=== PATIENT | female | born 1990 | race Two or more races ===

== ENCOUNTER 2019-07-15 20:03 | Inpatient (IN) | payer SELFPAY ==
[~2019-07-15] VITALS: Ht 162.6 cm; Wt 90.3 kg
[~2019-07-15 20:03] MED LIST: TRAM50TA PO
[2019-07-15] MEDS ORDERED: TERBUTALINE 1 MG/ML VIAL. SQ PRN (20:30)
[2019-07-15] MEDS ORDERED: MAG HYDROX/ALUMINUM HYD/SIMETH 30 ML ORAL.SUSP PO PRN (20:30)
[2019-07-15] MEDS ORDERED: LIDOCAINE 1% PF 30 ML VIAL. INJ PRN (20:30)
[2019-07-15] MEDS ORDERED: 0.9 % SODIUM CHLORIDE 10 ML DISP.SYRIN. IV PRN (20:30)
[2019-07-15] MEDS ORDERED: OXYTOCIN 30 UNIT/500 ML PREMIX 500 ML IV PRN (20:30)
[2019-07-15] MEDS ORDERED: ACETAMINOPHEN 325 MG TABLET. PO PRN (20:30)
[2019-07-15] MEDS ORDERED: fentaNYL PF VIAL 100 MCG/2 ML VIAL IV PRN (20:30)
[2019-07-15] MEDS ORDERED: IBUPROFEN 400 MG TABLET. PO PRN (20:30)
[2019-07-15] MEDS ORDERED: ONDANSETRON PF 4 MG/2 ML VIAL. IV PRN (20:30)
[2019-07-15] MEDS ORDERED: NALBUPHINE 10 MG/ML AMPUL. IV PRN (20:30)
[2019-07-15 20:47] LABS: BILIRUBIN,URINE NEGATIVE (NEG); CLARITY,URINE CLEAR; COLOR,URINE YELLOW; NITRITE,URINE NEGATIVE (NEG); PROTEIN,URINE NEGATIVE (NEG-TRACE); UROBILINOGEN,URINE 0.2 mg/dL (0.2 mg/dL)
[2019-07-15 20:52] LABS: RBC,URINE 0 /HPF (0-2); SQUAMOUS EPITHELIAL CELL,UR MANY /LPF
[2019-07-15 20:53] LABS: BACTERIA,URINE MODERATE /HPF (0-FEW)
--- NOTE | 2019-07-15 21:44 | RAD ---
Exam: Ultrasound OB limited Indication: Gestational diabetes Technique: Real-time grayscale and color Doppler images of the pelvis were obtained by the department red lead burner. Comparisons: None FINDINGS: Placenta has a normal appearance. Cervix is not visualized. Single live intrauterine gestation in cephalic position with heart rate measured at 149 bpm. measurements as follows: BPD 8.9 cm corresponding to 36 weeks 2 days HC 33.1 cm corresponding to 37 weeks 5 days AC 37.3 cm corresponding to 41 weeks 2 days FL 7.4 cm corresponding to 37 weeks 4 days Estimated weight 3784 g with a estimated gestational age of 38 weeks 2 days by today's ultrasound. LELE measured at 21.2 cm. IMPRESSION: 1. Single live intrauterine gestation with measurements as described above. Correlate with LMP. 2. LELE measured at 21.2 cm. Electronically signed by: Ignacia Wilkes MD (07/15/2019 9:41 PM) [facility]
[2019-07-15] MEDS: IV RINGERS,LACTATED 1000ML 1,000 ML IV PRN (21:52)
[2019-07-15 22:01] LABS: BASO % 0 % (0-3); EOS # 0.1 x10^3/uL (0.0-0.7); EOS % 1 % (0-3); HEMATOCRIT 38.4 % (36.0-47.0); HEMOGLOBIN 12.8 g/dL (12.0-15.5); LYMPH # 1.6 x10^3/uL (1.0-4.8); LYMPH % 16 % (24-48); MEAN CORPUSCULAR HEMOGLOBIN 30 pg (25-35); MEAN CORPUSCULAR HGB CONC 33 g/dL (31-37); MEAN CORPUSCULAR VOLUME 88 fL (79-100); MONO # 0.6 x10^3/uL (0.0-1.1); MONO % 6 % (0-9); NEUT # 7.8 x10^3/uL (1.8-7.7); NEUT % 78 % (31-73); PLATELET COUNT 181 x10^3/uL (140-400); RED BLOOD COUNT 4.35 x10^6/uL (3.50-5.40); RED CELL DISTRIBUTION WIDTH 13.6 % (11.5-14.5)
[2019-07-15 22:09] LABS: CALCIUM 8.6 mg/dL (8.5-10.1); CREATININE 0.6 mg/dL (0.6-1.0); POTASSIUM 3.5 mmol/L (3.5-5.1)
[2019-07-15 22:24] LABS: ALBUMIN 2.4 g/dL (3.4-5.0); ALBUMIN/GLOBULIN RATIO 0.6 (1.0-1.7); TOTAL BILIRUBIN 0.2 mg/dL (0.2-1.0); TOTAL PROTEIN 6.6 g/dL (6.4-8.2)
[2019-07-15 22:44] VITALS: BP 132/77
[2019-07-15] MEDS: diphenhydrAMINE HCL 25 MG CAPSULE PO PRN (23:23)
[2019-07-16] MEDS: IV RINGERS,LACTATED 1000ML 1,000 ML IV PRN (06:04)
[2019-07-16] MEDS: metFORMIN 500 MG TABLET PO SCH ×2 (08:32→18:07)
--- NOTE | 2019-07-16 11:25 | PDOC1 ---
OB - History Hx of Present Care: Good Care Ultrasounds: Normal mid trimester US Obstetrical Complications: Gestational Diabetes Medical Complications: None Past Family/Social History * Past Medical, Surgical, Family and Obstetric Histories reviewed from chart. Blood Type: O+ GBS Status: Unknown HBsAG: Negative OB - Chief Complaint & HPI Date of Admission: Date of Admission: Jul 15, 2019 at 20:03 Chief Complaint/History : 5 Para: 4 EGA: 37 Reason for admission: observation (uncontrolled Gestational DM A2) Admission Nurse Assessment Rev: Yes OB - Admission Exam Physical Exam Vitals: VS - Last 72 Hours, by Label Date Time Temp Pulse Resp B/P (MAP) Pulse Ox O2 Delivery O2 Flow Rate FiO2 07/15/19 22:44 98.9 109 18 132/77 (95) Room Air 98.9 HEENT: Normal Heart: Regular Rate Lungs: Clear, Equal Abdomen: Gravid, Non tender, Soft Extremities: Edema Reflexes: Normal Cervical Dilatation: 1cm Effacement: 25% Station: -3 Membranes: Intact Heart Rate: Normal Accelerations: Accelerations Present Decelerations: No decelerations Contractions on Admission: None Text A: 37 wks IUP Gestational DM A2: uncontrolled P: Observation for OB sono for EFW and LELE. Monitor blood sugar fasting and 2 hour PP. Continue Metformin 500gm BID. AUDREY ALVAREZ Jr, MD Jul 16, 2019 11:24
[2019-07-16] MEDS ORDERED: ACYC400T PO (17:24)
[2019-07-16] MEDS: ACYCLOVIR 400 MG PO SCH (18:08)
[2019-07-17 00:10] LABS: HEMOGLOBIN A1C 7.5 % (4.8-5.6)
[2019-07-17] MEDS: diphenhydrAMINE HCL 25 MG CAPSULE PO PRN (02:26)
[2019-07-17] MEDS: ACYCLOVIR 400 MG PO SCH (08:22)
[2019-07-17] MEDS: metFORMIN 500 MG TABLET PO SCH (08:22)
--- NOTE | 2019-07-17 09:33 | PDOC ---
OB Progress Note Date of Service 07/17/19 Time of Evaluation 0930 Notes Pt. feeling well. Blood sugars good control in hospital with strict dietary guidelines. Pt. counseled on GDM diet management, effect on fetus and anticipated induction. She will complete appointment with Dr. Nielson tomorrow to arrange induction date. Encouraged adherence to diabetic diet. Lab Laboratory Tests Test 07/15/19 20:33 07/15/19 21:30 07/16/19 08:00 07/16/19 10:33 Urine Collection Type Unknown Urine Color Yellow Urine Clarity Clear Urine pH 6.0 Urine Specific [place] 1.020 Urine Protein Negative mg/dL (NEG-TRACE) Urine Glucose (UA) Negative mg/dL (NEG) Urine Ketones (Stick) Negative mg/dL (NEG) Urine Blood Negative (NEG) Urine Nitrite Negative (NEG) Urine Bilirubin Negative (NEG) Urine Urobilinogen Dipstick 0.2 mg/dL (0.2 mg/dL) Urine Leukocyte Esterase Small (NEG) Urine RBC 0 /HPF (0-2) Urine WBC 5-10 /HPF (0-4) Urine Squamous Epithelial Cells Many /LPF Urine Bacteria Moderate /HPF (0-FEW) Urine Mucus Marked /LPF White Blood Count 10.0 x10^3/uL (4.0-11.0) Red Blood Count 4.35 x10^6/uL (3.50-5.40) Hemoglobin 12.8 g/dL (12.0-15.5) Hematocrit 38.4 % (36.0-47.0) Mean Corpuscular Volume 88 fL (79-100) Mean Corpuscular Hemoglobin 30 pg (25-35) Mean Corpuscular Hemoglobin Concent 33 g/dL (31-37) Red Cell Distribution Width 13.6 % (11.5-14.5) Platelet Count 181 x10^3/uL (140-400) Neutrophils (%) (Auto) 78 % (31-73) Lymphocytes (%) (Auto) 16 % (24-48) Monocytes (%) (Auto) 6 % (0-9) Eosinophils (%) (Auto) 1 % (0-3) Basophils (%) (Auto) 0 % (0-3) Neutrophils # (Auto) 7.8 x10^3/uL (1.8-7.7) Lymphocytes # (Auto) 1.6 x10^3/uL (1.0-4.8) Monocytes # (Auto) 0.6 x10^3/uL (0.0-1.1) Eosinophils # (Auto) 0.1 x10^3/uL (0.0-0.7) Basophils # (Auto) 0.0 x10^3/uL (0.0-0.2) Sodium Level 139 mmol/L (136-145) Potassium Level 3.5 mmol/L (3.5-5.1) Chloride Level 103 mmol/L (98-107) Carbon Dioxide Level 23 mmol/L (21-32) Anion Gap 13 (6-14) Blood Urea Nitrogen 8 mg/dL (7-20) Creatinine 0.6 mg/dL (0.6-1.0) Estimated GFR (Cockcroft-Gault) 119.0 BUN/Creatinine Ratio 13 (6-20) Glucose Level 155 mg/dL (70-99) Hemoglobin A1c 7.5 % (4.8-5.6) Calcium Level 8.6 mg/dL (8.5-10.1) Total Bilirubin 0.2 mg/dL (0.2-1.0) Aspartate Amino Transf (AST/SGOT) 12 U/L (15-37) Alanine Aminotransferase (ALT/SGPT) 12 U/L (14-59) Alkaline Phosphatase 165 U/L (46-116) Total Protein 6.6 g/dL (6.4-8.2) Albumin 2.4 g/dL (3.4-5.0) Albumin/Globulin Ratio 0.6 (1.0-1.7) Treponema pallidum Antibody Nonreactive (Nonreactive) Glucose (Fingerstick) 112 mg/dL (70-99) 125 mg/dL (70-99) Test 07/16/19 14:22 07/16/19 20:47 07/17/19 08:01 Glucose (Fingerstick) 139 mg/dL (70-99) 98 mg/dL (70-99) 105 mg/dL (70-99) Laboratory Tests Test 07/16/19 10:33 07/16/19 14:22 07/16/19 20:47 07/17/19 08:01 Glucose (Fingerstick) 125 mg/dL (70-99) 139 mg/dL (70-99) 98 mg/dL (70-99) 105 mg/dL (70-99) Medications Current Medications Sodium Chloride (Normal Saline Flush) 3 ml QSHIFT PRN IV AFTER MEDS AND BLOOD DRAWS; Start 07/15/19 at 20:30 Ringer's Solution 1,000 ml @ 125 mls/hr Q8H PRN IV hydration Last administered on 07/16/19at 06:04; Start 07/15/19 at 20:30 Nalbuphine HCl (Nubain) 10 mg PRN Q1HR PRN IV Severe labor pain; Start 07/15/19 at 20:30 Fentanyl Citrate (Fentanyl 2ml Vial) 100 mcg PRN Q30MIN PRN IV Severe pain; Start 07/15/19 at 20:30 Acetaminophen (Tylenol) 650 mg PRN Q6HRS PRN PO MILD PAIN / TEMP; Start 07/15/19 at 20:30 Ondansetron HCl (Zofran) 4 mg PRN Q4HRS PRN IV NAUSEA/VOMITING; Start 07/15/19 at 20:30 Al Hydroxide/Mg Hydroxide (Mylanta Plus Xs) 30 ml PRN Q4HRS PRN PO HEARTBURN / GAS; Start 07/15/19 at 20:30 Terbutaline Sulfate (Brethine) 0.25 mg 1X PRN PRN SQ SEE COMMENTS; Start 07/15/19 at 20:30; Stop 07/16/19 at 20:29; Status DC Lidocaine HCl (Xylocaine 1% Pf 30ml Vial) 30 ml 1X PRN PRN INJ SEE COMMENTS; Start 07/15/19 at 20:30; Stop 07/17/19 at 20:29 Oxytocin/Sodium Chloride 500 ml @ 0 mls/hr CONT PRN PRN IV Post delivery bleeding; Start 07/15/19 at 20:30 Ibuprofen (Motrin) 800 mg PRN Q6HRS PRN PO PAIN; Start 07/15/19 at 20:30 Diphenhydramine HCl (Benadryl) 50 mg PRN QHS PRN PO INSOMNIA Last administered on 07/17/19at 02:26; Start 07/15/19 at 20:30 Metformin HCl (Glucophage) 500 mg BIDWMEALS PO Last administered on 07/17/19at 08:22; Start 07/16/19 at 08:00 Non-Formulary Medication 1 ea BID PO Last administered on 07/17/19at 08:22; Start 07/16/19 at 21:00 Active Scripts Active Tramadol Hcl 50 Mg Tablet 50 Mg PO Q6HRS PRN 5 Days Reported Acyclovir 400 Mg Tablet 1 Tab PO BID Exam Abd: soft, non tender NST Category 1 Assessment 37 wks IUP GDM A2 Plan of Care: See new orders (D/c home. F/u tomorrow in clinic.) AUDREY ALVAREZ Jr, MD Jul 17, 2019 09:33
--- NOTE | 2019-07-17 09:40 | DISCH ---
DISCHARGE INSTRUCTIONS Condition on Discharge Condition on Discharge: Stable Activity After Discharge Activity Instructions for Disc: Activity as tolerated Bathing Instructions: Shower-keep dressing dry Lifting Instructions after Dis: No heavy lifting, No pulling or pushing, Do not lift >10 pounds Driving Instructions after Dis: Do not drive today Weight Bearing Status after Di: As tolerated Diet after Discharge Diet after Discharge: GI Soft (diabetic diet) Contacting the DRAnn after DC Call your doctor for: Concerns you may have Follow-Up Follow up with: Dr. Nielson tomorrow. Treatment/Equipment after DC Adaptive Equipment Issued: None AUDREY ALVAREZ Jr, MD Jul 17, 2019 09:40
== END 2019-07-17 11:55 | disposition home or self-care (01) | DRG 833 ==
LOC: 3 SO LND 20:03
PROVIDERS: ADMIT Specialist; ATTEND Specialist
DX: O24.419 Gestational diabetes mellitus in pregnancy, unspecified control (principal); Z3A.37 37 weeks gestation of pregnancy
CPT/HCPCS: 36415; 59025; 76815; 80053; 81001; 82962; 83036; 85025; 86592; 86850; 86900; 86901; 87086; J7120; Q0163; G0378

== ENCOUNTER 2019-07-28 15:05 | Inpatient (IN) | payer SELFPAY ==
[~2019-07-28] VITALS: Ht 162.6 cm; Wt 88.9 kg
[~2019-07-28 15:05] MED LIST changes: +ACYC400T PO
[2019-07-28] MEDS ORDERED: IV DEXTROSE 5%-LACT RINGERS 1,000 ML IV SCH (15:29)
[2019-07-28] MEDS ORDERED: IV NORMAL SALINE 1000ML BAG 1,000 ML IV SCH ×2 (15:29)
[2019-07-28] MEDS ORDERED: IV RINGERS,LACTATED 1000ML 1,000 ML IV SCH (15:29)
[2019-07-28] MEDS ORDERED: ONDANSETRON PF 4 MG/2 ML VIAL. IV PRN ×2 (15:30→16:30)
[2019-07-28] MEDS ORDERED: IV RINGERS,LACTATED 500ML 500 ML IV PRN (15:30)
[2019-07-28] MEDS ORDERED: MAG HYDROX/ALUMINUM HYD/SIMETH 30 ML ORAL.SUSP PO PRN ×2 (15:30→16:30)
[2019-07-28] MEDS ORDERED: 0.9 % SODIUM CHLORIDE 10 ML DISP.SYRIN. IV PRN (15:30)
[2019-07-28] MEDS ORDERED: ZOLPIDEM 5 MG TABLET. PO PRN ×2 (15:30→16:30)
[2019-07-28] MEDS ORDERED: ACETAMINOPHEN 325 MG TABLET. PO PRN ×2 (15:30→16:30)
[2019-07-28 15:40] LABS: BILIRUBIN,URINE NEGATIVE (NEG); CLARITY,URINE CLEAR; COLOR,URINE YELLOW; NITRITE,URINE NEGATIVE (NEG); PROTEIN,URINE 30 mg/dL (NEG-TRACE); UROBILINOGEN,URINE 0.2 mg/dL (0.2 mg/dL)
[2019-07-28 16:00] LABS: BACTERIA,URINE MODERATE /HPF (0-FEW); SQUAMOUS EPITHELIAL CELL,UR MANY /LPF
[2019-07-28] MEDS ORDERED: OXYTOCIN 30 UNIT/500 ML PREMIX 500 ML IV PRN ×3 (16:30)
[2019-07-28] MEDS ORDERED: NALBUPHINE 10 MG/ML AMPUL. IV PRN ×2 (16:30)
[2019-07-28] MEDS ORDERED: DOCUSATE SODIUM 283 MG/5 ML ENEMA. PR PRN (16:30)
[2019-07-28] MEDS ORDERED: LIDOCAINE 1% PF 30 ML VIAL. INJ PRN (16:30)
[2019-07-28] MEDS ORDERED: TERBUTALINE 1 MG/ML VIAL. SQ PRN (16:30)
[2019-07-28] MEDS ORDERED: CITRIC ACID/SODIUM CITRATE 30 ML SOLUTION. PO PRN (16:30)
[2019-07-28] MEDS ORDERED: IBUPROFEN 400 MG TABLET. PO PRN (16:30)
[2019-07-28] MEDS ORDERED: TERBUTALINE 1 MG/ML VIAL. IV PRN (16:30)
[2019-07-28] MEDS ORDERED: fentaNYL PF VIAL 100 MCG/2 ML VIAL IV PRN (16:30)
[2019-07-28 17:33] LABS: BASO % 0 % (0-3); EOS % 0 % (0-3); HEMATOCRIT 39.5 % (36.0-47.0); HEMOGLOBIN 13.1 g/dL (12.0-15.5); LYMPH # 2.1 x10^3/uL (1.0-4.8); LYMPH % 21 % (24-48); MEAN CORPUSCULAR HEMOGLOBIN 29 pg (25-35); MEAN CORPUSCULAR HGB CONC 33 g/dL (31-37); MEAN CORPUSCULAR VOLUME 88 fL (79-100); MONO # 0.7 x10^3/uL (0.0-1.1); MONO % 7 % (0-9); NEUT # 7.1 x10^3/uL (1.8-7.7); NEUT % 72 % (31-73); PLATELET COUNT 195 x10^3/uL (140-400); RED BLOOD COUNT 4.51 x10^6/uL (3.50-5.40); WHITE BLOOD COUNT 9.9 x10^3/uL (4.0-11.0)
[2019-07-28 18:00] VITALS: BP 136/70
[2019-07-28] MEDS: metFORMIN 500 MG TABLET PO SCH (20:13)
[2019-07-28] MEDS: IV RINGERS,LACTATED 1000ML 1,000 ML IV SCH (20:53)
[2019-07-29] MEDS: IV RINGERS,LACTATED 1000ML 1,000 ML IV SCH ×2 (06:48→10:01)
[2019-07-29] MEDS ORDERED: IV RINGERS,LACTATED 1000ML 1,000 ML IV SCH (08:02)
[2019-07-29] MEDS ORDERED: L&D EPIDURAL SYRINGE 50 ML ONE ×2 (08:07→11:18)
[2019-07-29] MEDS ORDERED: ROPIVacaine 0.2% PF 10 ML VIAL. ONE ×2 (08:07→10:00)
[2019-07-29] MEDS ORDERED: ONDANSETRON PF 4 MG/2 ML VIAL. IV PRN ×2 (08:15→14:00)
[2019-07-29] MEDS ORDERED: ROPIVacaine 0.2% IN 0.9%NACL PF 40 MG/20 ML DISP.SYRIN. EPID PRN (08:15)
[2019-07-29] MEDS ORDERED: NALOXONE 0.4 MG/ML VIAL. IV PRN (08:15)
[2019-07-29] MEDS ORDERED: ePHEDrine PF IN SALINE 50 MG/10 ML SYRINGE. IV PRN (08:15)
[2019-07-29] MEDS ORDERED: fentaNYL PF VIAL 100 MCG/2 ML VIAL EPID PRN (08:15)
[2019-07-29] MEDS ORDERED: METHYLERGONOVINE MALEATE 0.2 MG/ML VIAL. IM ONE ×2 (10:00→13:27)
[2019-07-29] MEDS ORDERED: L&D EPIDURAL 50 ML SYRINGE. ONE (10:00)
[2019-07-29] MEDS ORDERED: PHENYLEPHRINE in 0.9% NACL PF 1 MG/10 ML SYRINGE. IV ONE (13:25)
[2019-07-29] MEDS ORDERED: LIDOCAINE 2% PF 5 ML VIAL. ONE (13:25)
[2019-07-29] MEDS ORDERED: PROPOFOL 20 ML IV ONE (13:25)
[2019-07-29] MEDS ORDERED: ONDANSETRON PF 4 MG/2 ML VIAL. ONE (13:25)
[2019-07-29] MEDS ORDERED: SEVOFLURANE 31 TO 60 MINUTES. IH ONE (13:25)
[2019-07-29] MEDS ORDERED: ceFAZolin SODIUM 1 GM VIAL ONE (13:25)
[2019-07-29] MEDS ORDERED: MORPHINE PF 10 MG/10 ML AMPUL. ONE (13:26)
[2019-07-29] MEDS ORDERED: SUCCINYLCHOLINE 200 MG/10 ML VIAL. ONE (13:26)
[2019-07-29] MEDS ORDERED: OXYTOCIN 10 UNIT/ML VIAL. ONE (13:37)
[2019-07-29] MEDS ORDERED: 0.9 % SODIUM CHLORIDE 10 ML DISP.SYRIN. IV PRN (14:00)
[2019-07-29] MEDS ORDERED: oxyCODONE/APAP 5/325 1 TAB TABLET PO PRN ×2 (14:00)
[2019-07-29] MEDS ORDERED: OXYTOCIN 30 UNIT/500 ML PREMIX 500 ML IV PRN (14:00)
[2019-07-29] MEDS ORDERED: ceFAZolin SODIUM 1 GM in IV DEXTROSE 5% 50 ML IV SCH (14:00)
[2019-07-29] MEDS ORDERED: diphenhydrAMINE ORAL ELIXIR 12.5 MG/5 ML ML PO PRN (14:00)
[2019-07-29] MEDS ORDERED: ZOLPIDEM 5 MG TABLET. PO PRN (14:00)
[2019-07-29] MEDS ORDERED: MAG HYDROX/ALUMINUM HYD/SIMETH 30 ML ORAL.SUSP PO PRN (14:00)
[2019-07-29] MEDS ORDERED: MMR per PROTOCOL. MC PRN (14:00)
--- NOTE | 2019-07-29 14:44 | PDOC1 ---
OB - History Hx of Present Care: Good Care Ultrasounds: Normal mid trimester US Obstetrical Complications: None Medical Complications: None Past Family/Social History * Past Medical, Surgical, Family and Obstetric Histories reviewed from chart. Blood Type: O+ Rubella: Immune RPR/VDRL: Negative GBS Status: Negative HBsAG: Negative OB - Chief Complaint & HPI Date of Admission: Date of Admission: Jul 28, 2019 at 15:05 Chief Complaint/History : 5 Para: 4 EDC: Aug 02, 2019 Reason for admission: active labor Admission Nurse Assessment Rev: Yes OB - Admission Exam Physical Exam Vitals: VS - Last 72 Hours, by Label Date Time Temp Pulse Resp B/P (MAP) Pulse Ox O2 Delivery O2 Flow Rate FiO2 07/28/19 18:00 97.8 108 18 136/70 (92) 98 Room Air 97.8 HEENT: TM's Normal Heart: Regular Rate Lungs: Clear, Equal Abdomen: Gravid Extremities: Normal Pulses, No tenderness or swelling Reflexes: Normal Cervical Dilatation: 3cm Effacement: 25% Membranes: Intact Heart Rate: Normal Accelerations: Accelerations Present Decelerations: No decelerations Contractions on Admission: >10 Minutes Apart Intensity: Mild Assessment/Plan Assessment/Plan latent labor ACSVD ADRIANA SEBASTIAN MD Jul 29, 2019 14:44
[2019-07-29] MEDS: HYDROmorphone 2 MG/ML VIAL IVP PRN ×2 (14:56→18:40)
--- NOTE | 2019-07-29 14:58 | OP ---
DATE OF SURGERY: 07/29/2019 PREOPERATIVE DIAGNOSES: Term intrauterine , cord prolapse. POSTOPERATIVE DIAGNOSES: Term intrauterine , cord prolapse. PROCEDURE: Emergency low transverse . SURGEON: Eddie Nielson MD WELDING MACHINE OPERATOR GAS METAL ARC: None. ANESTHESIA: General. ESTIMATED BLOOD LOSS: 1000 mL. FLUIDS: Crystalloids. SPECIMENS: ABGs and placenta. FINDINGS: Normal uterus, tubes, and ovaries. Male infant, Apgars were 4, 7 and 8. Weight 9 pounds 7 ounces. COMPLICATIONS: None. CONDITION: Stable. DESCRIPTION OF PROCEDURE: The patient had prolapsed cord. The patient was informed she will need emergency . The patient was taken back to the OR theater, placed in supine position. After adequate general anesthesia, an incision was made after the patient had been ____ with Betadine and draped. Incision was made with a scalpel, taken down through subcutaneous tissue with scalpel. Rectus fascia was nicked in the midline, extended laterally in each direction bluntly. Upper edge of rectus fascia was elevated with gloved hand. Lower edge of rectus fascia was done as same. Rectus muscle was split in midline. Parietal peritoneum was entered bluntly with gloved hand. Stretch on rectus muscle made room for delivery of the . Low transverse Pfannenstiel incision was made sharply with a scalpel, extended laterally in each direction with gloved hand. Gloved hand was placed in the lower uterine segment, used to elevate the head with fundal pressure from the tutoring assistant with attempt to deliver on the anterior abdominal wall. had flexed laterally, shoulder came out. Gloved hand was used to bring the infant's head back into the vertex position and the shoulder and the head was delivered with fundal pressure. did cry spontaneously, was somewhat floppy on delivery. Cord was doubly clamped, transected cord between two clamps. was handed to nursing care in attendance. Cord segment was taken for pH. Cord blood was also taken. Placenta delivered spontaneously, intact 3-vessel cord. Uterus was extricated on anterior abdominal wall, wrapped in wet laparotomy sponge. Any adherent membrane was wiped free with a wet laparotomy sponge. Low transverse hysterotomy incision was reapproximated with 0 Monocryl in a running locking manner, imbricated with 0 Monocryl in a horizontal mattress stitch stitch fashion. Any areas of bleeding were controlled with [id number] 4-0 Vicryls. Bladder was inspected. There was some disruption of the broad ligament with the round ligament being avulsed from this attachment. There was no bladder reattachment. Good hemostasis was assured. Aicha was placed in this area for additional hemostasis as long as in the lower uterine segment of the uterus. Pelvic gutters were inspected, noted to be free of any blood or debris. Uterus was placed back within the pelvic cavity. Then the pelvic gutters were inspected again along with the posterior cul-de-sac. Rectus muscles reapproximated with 3-0 Vicryl in horizontal mattress stitch fashion. Areas of bleeding were controlled with Bovie cautery and Aicha. Rectus fascia was reapproximated with self-retaining 0 PDS stitch. Subcutaneous tissue was irrigated copiously with warm normal saline. Skin was reapproximated with Insorb cayla. Sponge, needle and instrument counts were correct x 2 per nursing staff. EDDIE NIELSON MD DR: JOSE ARMANDO/henrik JOB#: [id number] / [id number]
--- NOTE | 2019-07-29 16:07 | RAD ---
AP view of the abdomen Clinical indications: Post instruments not counted. FINDINGS: No radiopaque foreign body is identified. Cholecystectomy clips are seen within right upper quadrant. There is moderate fecal retention within the rectum and colon. No obstructive bowel pattern is evident. IMPRESSION: No radiopaque foreign body is evident. Electronically signed by: Campbell Quinones MD (07/29/2019 4:04 PM) [id number]
[2019-07-29] MEDS: metFORMIN 500 MG TABLET PO SCH (17:00)
[2019-07-29] MEDS ORDERED: FERROUS SULFATE 325 MG TABLET. PO SCH (17:00)
[2019-07-29 18:00] VITALS: BP 143/89
[2019-07-29 18:30] VITALS: BP 135/81
[2019-07-29 20:30] VITALS: BP 129/81
[2019-07-29 21:40] VITALS: BP 132/84
[2019-07-29] MEDS: KETOROLAC 30 MG/ML VIAL. IVP PRN (21:43)
[2019-07-29] MEDS: IBUPROFEN 400 MG TABLET. PO SCH (22:00)
[2019-07-29] MEDS: ceFAZolin SODIUM IV Push 1 GM VIAL. IVP SCH (22:23)
[2019-07-30] VITALS (8 sets, daily range): BP systolic 113–134; BP diastolic 68–86
[2019-07-30] MEDS: fentaNYL PF VIAL 100 MCG/2 ML VIAL IV PRN ×2 (02:01→08:02)
[2019-07-30] MEDS: KETOROLAC 30 MG/ML VIAL. IVP PRN (04:12)
[2019-07-30] MEDS: IBUPROFEN 400 MG TABLET. PO SCH ×4 (06:00→21:24)
[2019-07-30] MEDS: ceFAZolin SODIUM IV Push 1 GM VIAL. IVP SCH (06:50)
[2019-07-30] MEDS: metFORMIN 500 MG TABLET PO SCH ×3 (08:00→17:45)
[2019-07-30 08:06] LABS: BASO % 0 % (0-3); EOS % 0 % (0-3); HEMATOCRIT 31.5 % (36.0-47.0); HEMOGLOBIN 10.4 g/dL (12.0-15.5); LYMPH # 1.2 x10^3/uL (1.0-4.8); LYMPH % 15 % (24-48); MEAN CORPUSCULAR HEMOGLOBIN 29 pg (25-35); MEAN CORPUSCULAR HGB CONC 33 g/dL (31-37); MEAN CORPUSCULAR VOLUME 88 fL (79-100); MONO # 0.6 x10^3/uL (0.0-1.1); MONO % 8 % (0-9); NEUT % 77 % (31-73); PLATELET COUNT 137 x10^3/uL (140-400); RED BLOOD COUNT 3.58 x10^6/uL (3.50-5.40); RED CELL DISTRIBUTION WIDTH 14.4 % (11.5-14.5); WHITE BLOOD COUNT 7.9 x10^3/uL (4.0-11.0)
--- NOTE | 2019-07-30 10:11 | PDOC ---
Current Medications Current Medications Ringer's Solution 1,000 ml @ 125 mls/hr Q8H IV ; Start 07/28/19 at 15:29; Status Cancel Sodium Chloride 1,000 ml @ 125 mls/hr Q8H IV ; Start 07/28/19 at 15:29; Status Cancel Sodium Chloride (Normal Saline Flush) 3 ml QSHIFT PRN IV AFTER MEDS AND BLOOD DRAWS; Start 07/28/19 at 15:30; Stop 07/29/19 at 14:17; Status DC Ringer's Solution 500 ml @ 500 mls/hr PRN 1X PRN IV CALL MD IF GIVEN; Start 07/28/19 at 15:30 Ringer's Solution 1,000 ml @ 125 mls/hr Q8H IV Last administered on 07/29/19at 10:01; Start 07/28/19 at 15:29 Sodium Chloride 1,000 ml @ 125 mls/hr Q8H IV ; Start 07/28/19 at 15:29 Dextrose/Lactated Ringer's 1,000 ml @ 125 mls/hr Q8H IV ; Start 07/28/19 at 15:29 Acetaminophen (Tylenol) 650 mg PRN Q6HRS PRN PO PAIN, TEMP > 100.5'F Last administered on 07/28/19at 20:16; Start 07/28/19 at 15:30 Al Hydroxide/Mg Hydroxide (Mylanta Plus Xs) 15 ml PRN Q4HRS PRN PO HEARTBURN / GAS; Start 07/28/19 at 15:30; Stop 07/29/19 at 14:19; Status DC Ondansetron HCl (Zofran) 4 mg PRN Q6HRS PRN IV NAUSEA; Start 07/28/19 at 15:30; Stop 07/29/19 at 14:18; Status DC Zolpidem Tartrate (Ambien) 5 mg PRN QHS PRN PO INSOMNIA; Start 07/28/19 at 15:30; Stop 07/28/19 at 16:53; Status DC Nalbuphine HCl (Nubain) 5 mg PRN Q1HR PRN IV Mild to moderate labor pain; Start 07/28/19 at 16:30 Nalbuphine HCl (Nubain) 10 mg PRN Q1HR PRN IV Severe labor pain; Start 07/28/19 at 16:30 Fentanyl Citrate (Fentanyl 2ml Vial) 50 mcg PRN Q30MIN PRN IV Mild to moderate pain; Start 07/28/19 at 16:30 Fentanyl Citrate (Fentanyl 2ml Vial) 100 mcg PRN Q30MIN PRN IV Severe pain Last administered on 07/30/19at 08:02; Start 07/28/19 at 16:30 Acetaminophen (Tylenol) 650 mg PRN Q6HRS PRN PO MILD PAIN / TEMP; Start 07/28/19 at 16:30 Ondansetron HCl (Zofran) 4 mg PRN Q4HRS PRN IV NAUSEA/VOMITING; Start 07/28/19 at 16:30; Stop 07/29/19 at 14:18; Status DC Al Hydroxide/Mg Hydroxide (Mylanta Plus Xs) 30 ml PRN Q4HRS PRN PO HEARTBURN / GAS; Start 07/28/19 at 16:30; Stop 07/29/19 at 14:19; Status DC Citric Acid/ Sodium Citrate (Bicitra) 30 ml 1X PRN PRN PO DYSPEPSIA; Start 07/28/19 at 16:30; Stop 07/29/19 at 16:29; Status DC Zolpidem Tartrate (Ambien) 5 mg PRN QHS PRN PO INSOMNIA Last administered on 07/29/19at 02:03; Start 07/28/19 at 16:30; Stop 07/29/19 at 14:19; Status DC Terbutaline Sulfate (Brethine) 0.25 mg 1X PRN PRN SQ SEE COMMENTS; Start 07/28/19 at 16:30; Stop 07/29/19 at 16:29; Status DC Terbutaline Sulfate (Brethine) 0.25 mg 1X PRN PRN IV SEE COMMENTS; Start 07/28/19 at 16:30; Stop 07/28/19 at 16:53; Status DC Lidocaine HCl (Xylocaine 1% Pf 30ml Vial) 30 ml 1X PRN PRN INJ SEE COMMENTS; Start 07/28/19 at 16:30; Stop 07/30/19 at 16:29 Oxytocin/Sodium Chloride 500 ml @ 0 mls/hr CONT PRN IV SEE I/O RECORD Last administered on 07/29/19at 06:50; Start 07/28/19 at 16:30 Oxytocin/Sodium Chloride 500 ml @ 0 mls/hr CONT PRN IV SEE I/O RECORD; Start 07/28/19 at 16:30 Oxytocin/Sodium Chloride 500 ml @ 0 mls/hr CONT PRN PRN IV Post delivery bleeding; Start 07/28/19 at 16:30 Ibuprofen (Motrin) 800 mg PRN Q6HRS PRN PO INFLAMMATION; Start 07/28/19 at 16:30 Docusate Sodium (Enemeez) 283 mg PRN DAILY PRN [place] CONSTIPATION; Start 07/28/19 at 16:30 Metformin HCl (Glucophage) 500 mg BIDWMEALS PO Last administered on 07/28/19at 20:13; Start 07/28/19 at 17:00 Ringer's Solution 1,000 ml @ 1,000 mls/hr Q1H IV Last administered on 07/29/19at 18:43; Start 07/29/19 at 08:02; Stop 07/29/19 at 09:01; Status DC Ephedrine Sulfate (ePHEDrine PF IN SALINE SYRINGE) 10 mg PRN Q2MIN PRN IV IF SBP<90; Start 07/29/19 at 08:15 Naloxone HCl (Narcan) 0.4 mg PRN Q1MIN PRN IV SEE COMMENTS; Start 07/29/19 at 08:15 Fentanyl Citrate (Fentanyl 2ml Vial) 100 mcg PRN 1X PRN EPID FOR ANESTHESIA; Start 07/29/19 at 08:15; Stop 07/30/19 at 08:14; Status DC Ondansetron HCl (Zofran) 4 mg PRN Q6HRS PRN IV NAUSEA/VOMITING; Start 07/29/19 at 08:15; Stop 07/29/19 at 14:18; Status DC Ropivacaine/ Sodium Chloride (ROPIVacaine 0.2% - 0.9%NACL PF) 40 mg PRN 1X PRN EPID SEE COMMENTS; Start 07/29/19 at 08:15 Ropivacaine (Naropin 0.2%) 10 ml STK-MED ONCE .ROUTE ; Start 07/29/19 at 08:07; Stop 07/29/19 at 08:07; Status DC Fentanyl Citrate 50 ml @ As Directed STK-MED ONCE .ROUTE ; Start 07/29/19 at 08:07; Stop 07/29/19 at 08:07; Status DC Fentanyl Citrate 50 ml @ As Directed STK-MED ONCE .ROUTE ; Start 07/29/19 at 11:18; Stop 07/29/19 at 11:18; Status DC Propofol 20 ml @ As Directed STK-MED ONCE IV ; Start 07/29/19 at 13:25; Stop 07/29/19 at 13:26; Status Cancel Lidocaine HCl (Lidocaine Pf 2% Vial) 5 ml STK-MED ONCE .ROUTE ; Start 07/29/19 at 13:25; Stop 07/29/19 at 13:26; Status DC Ondansetron HCl (Zofran) 4 mg STK-MED ONCE .ROUTE ; Start 07/29/19 at 13:25; Stop 07/29/19 at 13:26; Status DC Phenylephrine HCl (PHENYLEPHRINE in 0.9% NACL PF) 1 mg STK-MED ONCE IV ; Start 07/29/19 at 13:25; Stop 07/29/19 at 13:26; Status DC Cefazolin Sodium (Ancef) 1 gm STK-MED ONCE .ROUTE ; Start 07/29/19 at 13:25; Stop 07/29/19 at 13:26; Status DC Sevoflurane (Ultane) 30 ml STK-MED ONCE IH ; Start 07/29/19 at 13:25; Stop 07/29/19 at 13:26; Status DC Succinylcholine Chloride (Anectine) 200 mg STK-MED ONCE .ROUTE ; Start 07/29/19 at 13:26; Stop 07/29/19 at 13:27; Status Cancel Morphine Sulfate (Morphine Preservative Free) 10 mg STK-MED ONCE .ROUTE ; Start 07/29/19 at 13:26; Stop 07/29/19 at 13:26; Status DC Methylergonovine Maleate (Methergine) 0.2 mg STK-MED ONCE IM ; Start 07/29/19 at 13:27; Stop 07/29/19 at 13:27; Status DC Oxytocin (Pitocin) 10 unit STK-MED ONCE .ROUTE ; Start 07/29/19 at 13:37; Stop 07/29/19 at 13:37; Status DC Sodium Chloride (Normal Saline Flush) 3 ml QSHIFT PRN IV AFTER MEDS AND BLOOD DRAWS; Start 07/29/19 at 14:00 Oxytocin/Sodium Chloride 500 ml @ 125 mls/hr CONT PRN IV EXCESSIVE POST- BLEEDING; Start 07/29/19 at 14:00; Stop 07/29/19 at 21:59; Status DC Ibuprofen (Motrin) 800 mg Q8HRS PO ; Start 07/29/19 at 14:00 Ondansetron HCl (Zofran) 4 mg PRN Q6HRS PRN IV NAUSEA/VOMITING Last administered on 07/29/19at 19:47; Start 07/29/19 at 14:00 Docusate Sodium (Colace) 100 mg PRN BID PRN PO HARD STOOLS; Start 07/29/19 at 14:00 Magnesium Hydroxide (Milk Of Magnesia) 2,400 mg PRN DAILY PRN PO CONSTIPATION; Start 07/29/19 at 14:00 Al Hydroxide/Mg Hydroxide (Mylanta Plus Xs) 30 ml PRN Q4HRS PRN PO HEARTBURN / GAS; Start 07/29/19 at 14:00 Simethicone (Gas-X) 80 mg PRN AFTMEALHC PRN PO GAS / BLOATING; Start 07/29/19 at 14:00 Diphenhydramine HCl (Benadryl Oral Elixir) 12.5 mg PRN Q6HRS PRN PO ITCHING; Start 07/29/19 at 14:00 Ferrous Sulfate (Feosol) 325 mg BIDWMEALS PO ; Start 07/29/19 at 17:00 Zolpidem Tartrate (Ambien) 5 mg PRN QHS PRN PO INSOMNIA, MAY REPEAT X1; Start 07/29/19 at 14:00 Info (Do NOT chart on this placeholder) 1 ea PRN 1X PRN MC SEE COMMENTS; Start 07/29/19 at 14:00 Info (Do NOT chart on this placeholder) 1 ea PRN 1X PRN MC SEE COMMENTS; Start 07/29/19 at 14:00 Oxycodone/ Acetaminophen (Percocet 5/325) 1 tab PRN Q4HRS PRN PO MODERATE PAIN 1ST CHOICE; Start 07/29/19 at 14:00 Oxycodone/ Acetaminophen (Percocet 5/325) 2 tab PRN Q4HRS PRN PO SEVERE PAIN; Start 07/29/19 at 14:00 Cefazolin Sodium 1 gm/Dextrose 50 ml @ 100 mls/hr Q8HRS IV ; Start 07/29/19 at 14:00; Status UNV Cefazolin Sodium (Ancef) 1 gm Q8HRS IVP Last administered on 07/30/19at 06:50; Start 07/29/19 at 22:00; Stop 07/30/19 at 14:01 Hydromorphone HCl (Dilaudid) 0.2 mg PRN Q4HRS PRN IVP PAIN Last administered on 07/29/19at 18:40; Start 07/29/19 at 14:45 Ketorolac Tromethamine (Toradol 30mg Vial) 30 mg PRN Q6HRS PRN IVP PAIN Last administered on 07/30/19at 04:12; Start 07/29/19 at 19:45; Stop 08/03/19 at 19:44 Acetaminophen/ Hydrocodone Bitart (Lortab 5/325) 1 tab PRN Q4HRS PRN PO MILD PAIN 1-3; Start 07/30/19 at 09:45 Acetaminophen/ Hydrocodone Bitart (Lortab 5/325) 2 tab PRN Q4HRS PRN PO PAIN MODERATE 2ND CHOICE; Start 07/30/19 at 09:45 Active Scripts Active Tramadol Hcl 50 Mg Tablet 50 Mg PO Q6HRS PRN 5 Days Reported Acyclovir 400 Mg Tablet 1 Tab PO BID Pertinent Labs/Test Laboratory Tests Test 07/28/19 15:22 07/28/19 17:20 07/28/19 19:38 07/29/19 06:45 Urine Collection Type Unknown Urine Color Yellow Urine Clarity Clear Urine pH 6.0 Urine Specific [place] 1.020 Urine Protein 30 mg/dL (NEG-TRACE) Urine Glucose (UA) Negative mg/dL (NEG) Urine Ketones (Stick) Negative mg/dL (NEG) Urine Blood Large (NEG) Urine Nitrite Negative (NEG) Urine Bilirubin Negative (NEG) Urine Urobilinogen Dipstick 0.2 mg/dL (0.2 mg/dL) Urine Leukocyte Esterase Trace (NEG) Urine RBC 11-20 /HPF (0-2) Urine WBC 1-4 /HPF (0-4) Urine Squamous Epithelial Cells Many /LPF Urine Bacteria Moderate /HPF (0-FEW) Urine Mucus Marked /LPF White Blood Count 9.9 x10^3/uL (4.0-11.0) Red Blood Count 4.51 x10^6/uL (3.50-5.40) Hemoglobin 13.1 g/dL (12.0-15.5) Hematocrit 39.5 % (36.0-47.0) Mean Corpuscular Volume 88 fL (79-100) Mean Corpuscular Hemoglobin 29 pg (25-35) Mean Corpuscular Hemoglobin Concent 33 g/dL (31-37) Red Cell Distribution Width 14.0 % (11.5-14.5) Platelet Count 195 x10^3/uL (140-400) Neutrophils (%) (Auto) 72 % (31-73) Lymphocytes (%) (Auto) 21 % (24-48) Monocytes (%) (Auto) 7 % (0-9) Eosinophils (%) (Auto) 0 % (0-3) Basophils (%) (Auto) 0 % (0-3) Neutrophils # (Auto) 7.1 x10^3/uL (1.8-7.7) Lymphocytes # (Auto) 2.1 x10^3/uL (1.0-4.8) Monocytes # (Auto) 0.7 x10^3/uL (0.0-1.1) Eosinophils # (Auto) 0.0 x10^3/uL (0.0-0.7) Basophils # (Auto) 0.0 x10^3/uL (0.0-0.2) Treponema pallidum Antibody Nonreactive (Nonreactive) Glucose (Fingerstick) 130 mg/dL (70-99) 118 mg/dL (70-99) Test 07/30/19 07:55 White Blood Count 7.9 x10^3/uL (4.0-11.0) Red Blood Count 3.58 x10^6/uL (3.50-5.40) Hemoglobin 10.4 g/dL (12.0-15.5) Hematocrit 31.5 % (36.0-47.0) Mean Corpuscular Volume 88 fL (79-100) Mean Corpuscular Hemoglobin 29 pg (25-35) Mean Corpuscular Hemoglobin Concent 33 g/dL (31-37) Red Cell Distribution Width 14.4 % (11.5-14.5) Platelet Count 137 x10^3/uL (140-400) Neutrophils (%) (Auto) 77 % (31-73) Lymphocytes (%) (Auto) 15 % (24-48) Monocytes (%) (Auto) 8 % (0-9) Eosinophils (%) (Auto) 0 % (0-3) Basophils (%) (Auto) 0 % (0-3) Neutrophils # (Auto) 6.0 x10^3/uL (1.8-7.7) Lymphocytes # (Auto) 1.2 x10^3/uL (1.0-4.8) Monocytes # (Auto) 0.6 x10^3/uL (0.0-1.1) Eosinophils # (Auto) 0.0 x10^3/uL (0.0-0.7) Basophils # (Auto) 0.0 x10^3/uL (0.0-0.2) Laboratory Tests Test 07/30/19 07:55 White Blood Count 7.9 x10^3/uL (4.0-11.0) Red Blood Count 3.58 x10^6/uL (3.50-5.40) Hemoglobin 10.4 g/dL (12.0-15.5) Hematocrit 31.5 % (36.0-47.0) Mean Corpuscular Volume 88 fL (79-100) Mean Corpuscular Hemoglobin 29 pg (25-35) Mean Corpuscular Hemoglobin Concent 33 g/dL (31-37) Red Cell Distribution Width 14.4 % (11.5-14.5) Platelet Count 137 x10^3/uL (140-400) Neutrophils (%) (Auto) 77 % (31-73) Lymphocytes (%) (Auto) 15 % (24-48) Monocytes (%) (Auto) 8 % (0-9) Eosinophils (%) (Auto) 0 % (0-3) Basophils (%) (Auto) 0 % (0-3) Neutrophils # (Auto) 6.0 x10^3/uL (1.8-7.7) Lymphocytes # (Auto) 1.2 x10^3/uL (1.0-4.8) Monocytes # (Auto) 0.6 x10^3/uL (0.0-1.1) Eosinophils # (Auto) 0.0 x10^3/uL (0.0-0.7) Basophils # (Auto) 0.0 x10^3/uL (0.0-0.2) Date and Time 07/30/2019 @1000. Pt up to shower with mild complaints of abdominal discomfort. No apparent anesthesia related problems Anesthesia Uneventful: Yes Any anesthesia Complications: No LAST VITALS Vital Signs Date Time Temp Pulse Resp B/P (MAP) Pulse Ox O2 Delivery O2 Flow Rate FiO2 07/30/19 06:02 98.5 98 115/68 (84) 96 98.5 07/30/19 03:24 16 Room Air NINFA BURTON CRNA Jul 30, 2019 10:11
[2019-07-30] MEDS: HYDROcodone/APAP 5/325MG 1 TAB TABLET PO PRN ×4 (10:56→21:23)
[2019-07-30] MEDS: DOCUSATE SODIUM 100 MG CAPSULE. PO PRN ×2 (13:46→21:22)
--- NOTE | 2019-07-30 15:11 | PDOC ---
Provider Note Provider Note POD 1 Doing well VSS Dressing CDI FU in AM Vital Sign - Last 24 Hours 07/29/19 07/29/19 07/29/19 07/29/19 18:00 18:30 18:40 20:30 Temp 98.5 98.5 98.5 98.5 Pulse 98 96 96 Resp 18 20 18 B/P (MAP) 143/89 (107) 135/81 (99) 129/81 (97) Pulse Ox 95 97 97 O2 Delivery Room Air Room Air Room Air 07/29/19 07/30/19 07/30/19 07/30/19 21:40 00:32 02:01 02:07 Temp 98.0 98.4 98.0 98.4 Pulse 90 90 86 Resp 18 B/P (MAP) 132/84 (100) 113/78 (90) 120/76 (91) Pulse Ox 97 96 96 96 O2 Delivery Room Air 07/30/19 07/30/19 07/30/19 07/30/19 03:24 04:13 06:02 10:05 Temp 98.4 98.5 98.5 98.4 98.5 98.5 Pulse 86 98 110 Resp 16 B/P (MAP) 114/74 (87) 115/68 (84) 129/78 (95) Pulse Ox 93 96 96 O2 Delivery Room Air 07/30/19 14:15 Pulse 114 Resp 20 B/P (MAP) 134/81 (98) Pulse Ox 99 O2 Delivery Room Air Intake and Output 07/29/19 07/29/19 07/30/19 14:59 22:59 06:59 Intake Total 120 ml 1170 ml Output Total 300 ml 1700 ml Balance -180 ml -530 ml CBC - BMP 07/30/19 07:55 ADRIANA SEBASTIAN MD Jul 30, 2019 15:11
[2019-07-30] MEDS: SIMETHICONE 80 MG TAB.CHEW PO PRN ×2 (17:45→20:11)
[2019-07-30] MEDS: MAGNESIUM HYDROXIDE 2,400 MG/30 ML ORAL.SUSP. PO PRN (23:36)
[2019-07-31] MEDS: HYDROcodone/APAP 5/325MG 1 TAB TABLET PO PRN ×4 (01:24→23:08)
[2019-07-31] MEDS: IBUPROFEN 400 MG TABLET. PO SCH ×3 (06:08→23:07)
[2019-07-31] MEDS: SIMETHICONE 80 MG TAB.CHEW PO PRN ×4 (06:13→21:37)
[2019-07-31] MEDS: DOCUSATE SODIUM 100 MG CAPSULE. PO PRN ×2 (08:12→21:16)
[2019-07-31] MEDS: metFORMIN 500 MG TABLET PO SCH ×2 (08:12→18:09)
[2019-07-31 10:30] VITALS: BP 128/79
--- NOTE | 2019-07-31 11:51 | PDOC ---
OB Progress Note Date of Service 07/31/19 Time of Evaluation 1150 Notes Pt. feeling well. Pain controlled. No complaints. Lab Laboratory Tests Test 07/30/19 07:55 White Blood Count 7.9 x10^3/uL (4.0-11.0) Red Blood Count 3.58 x10^6/uL (3.50-5.40) Hemoglobin 10.4 g/dL (12.0-15.5) Hematocrit 31.5 % (36.0-47.0) Mean Corpuscular Volume 88 fL (79-100) Mean Corpuscular Hemoglobin 29 pg (25-35) Mean Corpuscular Hemoglobin Concent 33 g/dL (31-37) Red Cell Distribution Width 14.4 % (11.5-14.5) Platelet Count 137 x10^3/uL (140-400) Neutrophils (%) (Auto) 77 % (31-73) Lymphocytes (%) (Auto) 15 % (24-48) Monocytes (%) (Auto) 8 % (0-9) Eosinophils (%) (Auto) 0 % (0-3) Basophils (%) (Auto) 0 % (0-3) Neutrophils # (Auto) 6.0 x10^3/uL (1.8-7.7) Lymphocytes # (Auto) 1.2 x10^3/uL (1.0-4.8) Monocytes # (Auto) 0.6 x10^3/uL (0.0-1.1) Eosinophils # (Auto) 0.0 x10^3/uL (0.0-0.7) Basophils # (Auto) 0.0 x10^3/uL (0.0-0.2) Medications Current Medications Ringer's Solution 1,000 ml @ 125 mls/hr Q8H IV ; Start 07/28/19 at 15:29; Status Cancel Sodium Chloride 1,000 ml @ 125 mls/hr Q8H IV ; Start 07/28/19 at 15:29; Status Cancel Sodium Chloride (Normal Saline Flush) 3 ml QSHIFT PRN IV AFTER MEDS AND BLOOD DRAWS; Start 07/28/19 at 15:30; Stop 07/29/19 at 14:17; Status DC Ringer's Solution 500 ml @ 500 mls/hr PRN 1X PRN IV CALL MD IF GIVEN; Start 07/28/19 at 15:30; Stop 07/30/19 at 11:21; Status DC Ringer's Solution 1,000 ml @ 125 mls/hr Q8H IV Last administered on 07/29/19at 10:01; Start 07/28/19 at 15:29; Stop 07/30/19 at 11:21; Status DC Sodium Chloride 1,000 ml @ 125 mls/hr Q8H IV ; Start 07/28/19 at 15:29; Stop 07/30/19 at 11:21; Status DC Dextrose/Lactated Ringer's 1,000 ml @ 125 mls/hr Q8H IV ; Start 07/28/19 at 15:29; Stop 07/30/19 at 11:21; Status DC Acetaminophen (Tylenol) 650 mg PRN Q6HRS PRN PO PAIN, TEMP > 100.5'F Last administered on 07/28/19at 20:16; Start 07/28/19 at 15:30; Stop 07/30/19 at 12:27; Status DC Al Hydroxide/Mg Hydroxide (Mylanta Plus Xs) 15 ml PRN Q4HRS PRN PO HEARTBURN / GAS; Start 07/28/19 at 15:30; Stop 07/29/19 at 14:19; Status DC Ondansetron HCl (Zofran) 4 mg PRN Q6HRS PRN IV NAUSEA; Start 07/28/19 at 15:30; Stop 07/29/19 at 14:18; Status DC Zolpidem Tartrate (Ambien) 5 mg PRN QHS PRN PO INSOMNIA; Start 07/28/19 at 15:30; Stop 07/28/19 at 16:53; Status DC Nalbuphine HCl (Nubain) 5 mg PRN Q1HR PRN IV Mild to moderate labor pain; Start 07/28/19 at 16:30; Stop 07/30/19 at 11:21; Status DC Nalbuphine HCl (Nubain) 10 mg PRN Q1HR PRN IV Severe labor pain; Start 07/28/19 at 16:30; Stop 07/30/19 at 11:21; Status DC Fentanyl Citrate (Fentanyl 2ml Vial) 50 mcg PRN Q30MIN PRN IV Mild to moderate pain; Start 07/28/19 at 16:30; Stop 07/30/19 at 11:21; Status DC Fentanyl Citrate (Fentanyl 2ml Vial) 100 mcg PRN Q30MIN PRN IV Severe pain Last administered on 07/30/19at 08:02; Start 07/28/19 at 16:30; Stop 07/30/19 at 11:21; Status DC Acetaminophen (Tylenol) 650 mg PRN Q6HRS PRN PO MILD PAIN / TEMP; Start 07/28/19 at 16:30 Ondansetron HCl (Zofran) 4 mg PRN Q4HRS PRN IV NAUSEA/VOMITING; Start 07/28/19 at 16:30; Stop 07/29/19 at 14:18; Status DC Al Hydroxide/Mg Hydroxide (Mylanta Plus Xs) 30 ml PRN Q4HRS PRN PO HEARTBURN / GAS; Start 07/28/19 at 16:30; Stop 07/29/19 at 14:19; Status DC Citric Acid/ Sodium Citrate (Bicitra) 30 ml 1X PRN PRN PO DYSPEPSIA; Start 07/28/19 at 16:30; Stop 07/29/19 at 16:29; Status DC Zolpidem Tartrate (Ambien) 5 mg PRN QHS PRN PO INSOMNIA Last administered on at 02:03; Start 07/28/19 at 16:30; Stop 07/29/19 at 14:19; Status DC Terbutaline Sulfate (Brethine) 0.25 mg 1X PRN PRN SQ SEE COMMENTS; Start 07/28/19 at 16:30; Stop 07/29/19 at 16:29; Status DC Terbutaline Sulfate (Brethine) 0.25 mg 1X PRN PRN IV SEE COMMENTS; Start 07/28/19 at 16:30; Stop 07/28/19 at 16:53; Status DC Lidocaine HCl (Xylocaine 1% Pf 30ml Vial) 30 ml 1X PRN PRN INJ SEE COMMENTS; Start 07/28/19 at 16:30; Stop 07/30/19 at 11:21; Status DC Oxytocin/Sodium Chloride 500 ml @ 0 mls/hr CONT PRN IV SEE I/O RECORD Last administered on 07/29/19at 06:50; Start 07/28/19 at 16:30; Stop 07/30/19 at 11:21; Status DC Oxytocin/Sodium Chloride 500 ml @ 0 mls/hr CONT PRN IV SEE I/O RECORD; Start 07/28/19 at 16:30; Stop 07/30/19 at 11:21; Status DC Oxytocin/Sodium Chloride 500 ml @ 0 mls/hr CONT PRN PRN IV Post delivery bleeding; Start 07/28/19 at 16:30; Stop 07/30/19 at 11:21; Status DC Ibuprofen (Motrin) 800 mg PRN Q6HRS PRN PO INFLAMMATION; Start 07/28/19 at 16:30; Stop 07/30/19 at 12:29; Status DC Docusate Sodium (Enemeez) 283 mg PRN DAILY PRN [place] CONSTIPATION Last administered on 07/31/19at 06:45; Start 07/28/19 at 16:30 Metformin HCl (Glucophage) 500 mg BIDWMEALS PO Last administered on 07/31/19at 08:12; Start 07/28/19 at 17:00 Ringer's Solution 1,000 ml @ 1,000 mls/hr Q1H IV Last administered on 07/29/19at 18:43; Start 07/29/19 at 08:02; Stop 07/29/19 at 09:01; Status DC Ephedrine Sulfate (ePHEDrine PF IN SALINE SYRINGE) 10 mg PRN Q2MIN PRN IV IF SBP<90; Start 07/29/19 at 08:15; Stop 07/30/19 at 11:21; Status DC Naloxone HCl (Narcan) 0.4 mg PRN Q1MIN PRN IV SEE COMMENTS; Start 07/29/19 at 08:15; Stop 07/30/19 at 11:21; Status DC Fentanyl Citrate (Fentanyl 2ml Vial) 100 mcg PRN 1X PRN EPID FOR ANESTHESIA; Start 07/29/19 at 08:15; Stop 07/30/19 at 08:14; Status DC Ondansetron HCl (Zofran) 4 mg PRN Q6HRS PRN IV NAUSEA/VOMITING; Start 07/29/19 at 08:15; Stop 07/29/19 at 14:18; Status DC Ropivacaine/ Sodium Chloride (ROPIVacaine 0.2% - 0.9%NACL PF) 40 mg PRN 1X PRN EPID SEE COMMENTS; Start 07/29/19 at 08:15; Stop 07/30/19 at 11:21; Status DC Ropivacaine (Naropin 0.2%) 10 ml STK-MED ONCE .ROUTE ; Start 07/29/19 at 08:07; Stop 07/29/19 at 08:07; Status DC Fentanyl Citrate 50 ml @ As Directed STK-MED ONCE .ROUTE ; Start 07/29/19 at 08:07; Stop 07/29/19 at 08:07; Status DC Fentanyl Citrate 50 ml @ As Directed STK-MED ONCE .ROUTE ; Start 07/29/19 at 11:18; Stop 07/29/19 at 11:18; Status DC Propofol 20 ml @ As Directed STK-MED ONCE IV ; Start 07/29/19 at 13:25; Stop 07/29/19 at 13:26; Status Cancel Lidocaine HCl (Lidocaine Pf 2% Vial) 5 ml STK-MED ONCE .ROUTE ; Start 07/29/19 at 13:25; Stop 07/29/19 at 13:26; Status DC Ondansetron HCl (Zofran) 4 mg STK-MED ONCE .ROUTE ; Start 07/29/19 at 13:25; Stop 07/29/19 at 13:26; Status DC Phenylephrine HCl (PHENYLEPHRINE in 0.9% NACL PF) 1 mg STK-MED ONCE IV ; Start 07/29/19 at 13:25; Stop 07/29/19 at 13:26; Status DC Cefazolin Sodium (Ancef) 1 gm STK-MED ONCE .ROUTE ; Start 07/29/19 at 13:25; Stop 07/29/19 at 13:26; Status DC Sevoflurane (Ultane) 30 ml STK-MED ONCE IH ; Start 07/29/19 at 13:25; Stop 07/29/19 at 13:26; Status DC Succinylcholine Chloride (Anectine) 200 mg STK-MED ONCE .ROUTE ; Start 07/29/19 at 13:26; Stop 07/29/19 at 13:27; Status Cancel Morphine Sulfate (Morphine Preservative Free) 10 mg STK-MED ONCE .ROUTE ; Start 07/29/19 at 13:26; Stop 07/29/19 at 13:26; Status DC Methylergonovine Maleate (Methergine) 0.2 mg STK-MED ONCE IM ; Start 07/29/19 at 13:27; Stop 07/29/19 at 13:27; Status DC Oxytocin (Pitocin) 10 unit STK-MED ONCE .ROUTE ; Start 07/29/19 at 13:37; Stop 07/29/19 at 13:37; Status DC Sodium Chloride (Normal Saline Flush) 3 ml QSHIFT PRN IV AFTER MEDS AND BLOOD DRAWS; Start 07/29/19 at 14:00; Stop 07/30/19 at 11:21; Status DC Oxytocin/Sodium Chloride 500 ml @ 125 mls/hr CONT PRN IV EXCESSIVE POST- BLEEDING; Start 07/29/19 at 14:00; Stop 07/29/19 at 21:59; Status DC Ibuprofen (Motrin) 800 mg Q8HRS PO Last administered on 07/31/19at 06:08; Start 07/29/19 at 14:00 Ondansetron HCl (Zofran) 4 mg PRN Q6HRS PRN IV NAUSEA/VOMITING Last administered on 07/29/19at 19:47; Start 07/29/19 at 14:00; Stop 07/30/19 at 11:21; Status DC Docusate Sodium (Colace) 100 mg PRN BID PRN PO HARD STOOLS Last administered on 07/31/19at 08:12; Start 07/29/19 at 14:00 Magnesium Hydroxide (Milk Of Magnesia) 2,400 mg PRN DAILY PRN PO CONSTIPATION Last administered on 07/30/19at 23:36; Start 07/29/19 at 14:00 Al Hydroxide/Mg Hydroxide (Mylanta Plus Xs) 30 ml PRN Q4HRS PRN PO HEARTBURN / GAS Last administered on 07/31/19at 06:13; Start 07/29/19 at 14:00 Simethicone (Gas-X) 80 mg PRN AFTMEALHC PRN PO GAS / BLOATING Last administered on 07/31/19at 06:13; Start 07/29/19 at 14:00 Diphenhydramine HCl (Benadryl Oral Elixir) 12.5 mg PRN Q6HRS PRN PO ITCHING; Start 07/29/19 at 14:00 Ferrous Sulfate (Feosol) 325 mg BIDWMEALS PO ; Start 07/29/19 at 17:00; Stop 07/30/19 at 13:19; Status DC Zolpidem Tartrate (Ambien) 5 mg PRN QHS PRN PO INSOMNIA, MAY REPEAT X1; Start 07/29/19 at 14:00 Info (Do NOT chart on this placeholder) 1 ea PRN 1X PRN MC SEE COMMENTS; Start 07/29/19 at 14:00 Info (Do NOT chart on this placeholder) 1 ea PRN 1X PRN MC SEE COMMENTS; Start 07/29/19 at 14:00 Oxycodone/ Acetaminophen (Percocet 5/325) 1 tab PRN Q4HRS PRN PO MODERATE PAIN 1ST CHOICE; Start 07/29/19 at 14:00 Oxycodone/ Acetaminophen (Percocet 5/325) 2 tab PRN Q4HRS PRN PO SEVERE PAIN; Start 07/29/19 at 14:00 Cefazolin Sodium 1 gm/Dextrose 50 ml @ 100 mls/hr Q8HRS IV ; Start 07/29/19 at 14:00; Status UNV Cefazolin Sodium (Ancef) 1 gm Q8HRS IVP Last administered on 07/30/19at 06:50; Start 07/29/19 at 22:00; Stop 07/30/19 at 11:21; Status DC Hydromorphone HCl (Dilaudid) 0.2 mg PRN Q4HRS PRN IVP PAIN Last administered on 07/29/19at 18:40; Start 07/29/19 at 14:45; Stop 07/30/19 at 11:21; Status DC Ketorolac Tromethamine (Toradol 30mg Vial) 30 mg PRN Q6HRS PRN IVP PAIN Last administered on 07/30/19at 04:12; Start 07/29/19 at 19:45; Stop 07/30/19 at 11:21; Status DC Acetaminophen/ Hydrocodone Bitart (Lortab 5/325) 1 tab PRN Q4HRS PRN PO MILD PAIN 1-3 Last administered on 07/30/19at 21:23; Start 07/30/19 at 09:45 Acetaminophen/ Hydrocodone Bitart (Lortab 5/325) 2 tab PRN Q4HRS PRN PO PAIN MODERATE 2ND CHOICE Last administered on 07/31/19at 06:13; Start 07/30/19 at 09:45 Active Scripts Active Tramadol Hcl 50 Mg Tablet 50 Mg PO Q6HRS PRN 5 Days Reported Acyclovir 400 Mg Tablet 1 Tab PO BID Exam Abd: soft, non tender, fundus firm Prevena in place Assessment POD#2 s/p c/s Plan of Care: Continue current Tx, Mgmt AUDREY ALVAREZ Jr, MD Jul 31, 2019 11:51
[2019-07-31 18:54] VITALS: BP 135/87
[2019-07-31 20:00] VITALS: BP 131/78
[2019-08-01 02:30] VITALS: BP 129/72
[2019-08-01] MEDS: HYDROcodone/APAP 5/325MG 1 TAB TABLET PO PRN ×3 (02:34→13:12)
[2019-08-01 07:50] VITALS: BP 113/72
[2019-08-01] MEDS: metFORMIN 500 MG TABLET PO SCH (07:53)
[2019-08-01] MEDS: DOCUSATE SODIUM 100 MG CAPSULE. PO PRN (07:53)
[2019-08-01] MEDS: SIMETHICONE 80 MG TAB.CHEW PO PRN (07:53)
[2019-08-01] MEDS: MAGNESIUM HYDROXIDE 2,400 MG/30 ML ORAL.SUSP. PO PRN (07:53)
[2019-08-01] MEDS: IBUPROFEN 400 MG TABLET. PO SCH (07:54)
[2019-08-01 10:45] VITALS: BP 126/86
[2019-08-01 17:05] VITALS: BP 152/85
--- NOTE | 2019-08-02 17:06 | PATHOLOGY ---
[facility] Accession Number: [id number] . 01 Material submitted: . placenta - PLACENTA AND CORD . 01 Clinical history: . EDC: 08/02/2019 4, 7, 8 Cord prolapse, stat : 5 para: 4 . 02 Diagnosis: 565-gram term placenta of an estimated 39 weeks gestation with attached membranes and attached and detached segments of umbilical cord: - Prolapsed umbilical cord (clinical). - Increased subamniotic macrophages consistent with meconium staining. - Intervillous thrombi, several, with focal villous entrapment and ischemic degeneration and adjacent small infarct. - Subchorionic fibrin deposition. - Villitis of unknown etiology and intervillositis, focal. . (JPM:susan; 08/02/2019) QMS 08/02/2019 1619 Local . 02 Comment: There is no evidence of an acute chorioamnionitis. . 02 Electronically signed: . Cornell Camacho MD, Pathologist NPI- [id number] . 01 Gross description: . The specimen is received in formalin labeled "[place], placenta" and consists of a circular jo placenta measuring 17.7 x 16.8 x 3.1 cm and weighing 565 g after removal of membranes and umbilical cord. The membranes are green-garland, thin, and translucent. The surface is green-corrales and well vascularized with an eccentrically inserted 3 vessel umbilical cord, 4.0 from edge. The cord measures 24.5 cm in length and up to 1.5 cm in diameter. Received separately is a second segment of umbilical cord measuring 30.0 cm in length and up to 1.8 cm in diameter. Both segments of cord are white-garland with increased twists. The amnion and chorion show extensive separation. The maternal surface shows complete and partially disrupted cotyledons with a central area of depression measuring 6.5 x 4.5 cm. No cotyledons grossly appear absent and no additional placental tissue is identified within the container there is moderate adherent blood clot. Sectioning reveals a maroon-red and spongy parenchyma with a few scattered orange-pink hemorrhagic lesions measuring up to 1.5 cm (less than 5% of overall parenchyma). [employer] sections are submitted as follows: . A1: Surface vessels A2: Umbilical cord and membrane rolls A3: Full thickness section central area of depression A4: Full-thickness section with lesion A5: Additional lesion and additional maternal surface with clot (SDY; 08/01/2019) SYU/SYU 08/01/2019 1520 Local . 02 Pathologist provided ICD-10: O77.0, O82, Z3A.39, Z37.0 . 02 CPT . 865738 Specimen Comment: A courtesy copy of this report has been sent to Specimen Comment: [phone]. Specimen Comment: Report sent to Performed at: 01 [facility] [address], [place] [id number] MD Keron Fenton MD Phone: [phone] Performed at: 02 [facility] [address], [place] [id number] MD Cornell Camacho MD Phone: [phone]
== END 2019-08-01 17:25 | disposition home or self-care (01) | DRG 788 ==
LOC: 3 SO LND 15:05 → 3 NORTH 07-29 18:18
PROVIDERS: ADMIT Specialist; ATTEND Specialist
PROC: 10D00Z1 Extraction of Products of Conception, Low, Open Approach (ICD-10-PCS; principal; 2019-07-29)
DX: O69.0XX0 Labor and delivery complicated by prolapse of cord, not applicable or unspecified (principal); Z37.0 Single live birth; Z3A.39 39 weeks gestation of pregnancy
CPT/HCPCS: 36415; 74018; 81001; 82962; 85025; 86592; 86850; 86900; 86901; 87086; 88307; J0330; J0690; J1170; J1885; J2001; J2210; J2274; J2370; J2405; J2590; J2704; J2795; J3010; J7120; G0378